=== PATIENT | male | born 1960 | race Caucasian/White ===

== ENCOUNTER 2016-12-22 19:42 | Emergency (ER) | payer SELFPAY ==
[~2016-12-22] VITALS: Ht 157.5 cm; Wt 79.1 kg
[2016-12-22] MEDS ORDERED: SULF1TAB42 PO (19:52)
[2016-12-22] MEDS ORDERED: DICY10 PO (19:54)
[2016-12-22] MEDS ORDERED: FAMO20 PO (19:54)
[2016-12-22] MEDS ORDERED: ACETAMINOPHEN 500 MG TABLET PO ONE (23:45)
[2016-12-23 00:24] VITALS: BP 138/85
== END 2016-12-23 00:27 | disposition home or self-care (01) ==
LOC: EMS 19:44
DX: S13.4XXA Sprain of ligaments of cervical spine, initial encounter (principal); S00.93XA Contusion of unspecified part of head, initial encounter; W51.XXXA Accidental striking against or bumped into by another person, initial encounter; Y93.89 Activity, other specified; Y92.89 Other specified places as the place of occurrence of the external cause; Y99.8 Other external cause status
CPT/HCPCS: 72040; 99284